=== PATIENT | female | born 1995 | race Caucasian/White ===

== ENCOUNTER → 2017-10-25 23:10 | Observation (INO) ==
[2017-10-25 20:57] VITALS: BP 193/99
[2017-10-25 21:04] LABS: Basophils % 0.2 %; Eosinophils % 0.2 %; Hematocrit 35.1 % (35.3-44.9); Hemoglobin 12.2 g/dL (11.5-15.4); Lymphocytes # 2.4 K/mcL (0.6-4.6); Mean Corpuscular HGB Conc 34.8 g/dL (31.6-35.5); Mean Corpuscular Hemoglobin 28.9 pg (28.0-33.3); Mean Corpuscular Volume 83.2 fL (83.0-100.0); Mean Platelet Volume 10.9 fL (9.4-12.4); Monocytes # 0.8 K/mcL (0.0-1.3); Monocytes % 6.5 %; Neutrophils # 8.8 K/mcL (1.6-8.9); Platelet Count 153 K/mcL (140-400); Red Blood Count 4.22 M/mcL (3.82-4.97); Red Cell Distribution Width 13.4 % (11.5-14.5); Segmented Neutrophils % 72.1 %
[2017-10-25 21:07] LABS: Amphetamine Screen,Urine Negative ng/mL (Cutoff=1000); Barbiturate Screen,Urine Negative ng/mL (Cutoff=200); Benzodiazepines Screen,Urine Negative ng/mL (Cutoff=200); Cannabinoid Screen,Urine Negative ng/mL (Cutoff = 50); Cocaine Screen,Urine Negative ng/mL (Cutoff= 300); Opiate Screen,Urine Negative ng/mL (Cutoff=300); Phencyclidine Screen,Urine Negative ng/mL (Cutoff=25)
[2017-10-25 21:26] LABS: Alanine Aminotransferase 12 Units/L (7-52); Aspartate Amino Transferase 26 Units/L (13-39); BUN/Creatinine Ratio 28 (6-26); Blood Urea Nitrogen 16 mg/dL (6-20); Uric Acid 7.2 mg/dL (2.3-7.6); eGFR For Non-African Americans > 60 (> 60)
[2017-10-25 21:44] LABS: Protein/Creatinine Ratio,Urine 8.49 mg/mg (0.00-0.20)
--- NOTE | 2017-10-25 22:21 | OB/GYN Progress Note ---
Date of Encounter: 10/25/17 Time of Encounter: 22:18 - Assessment and Plan (1) Pre-eclampsia Current Visit: Yes Status: Acute PIH labs highly elevated UPC at 8.49, remainder of labs WNL Blood pressures remained elevated and unable to obtain IV access within the first 20 minutes, patient given 10mg PO procardia x 1. Blood pressures decreased to 140's/80-90's after dose. Discussed with Dr Florentino, [place] [facility] Florentino [place] [facility] [place] Per consult with Dr Florentino, started IV magnesium. 4gm loading dose and then 2gm per hour maintenance. Patient transferred via squad with magnesium infusing and bedolla catheter in place. Qualifiers: Trimester: third trimester Qualified Code(s): O14.93 - Unspecified pre- eclampsia, third trimester (2) 32 weeks gestation of Current Visit: Yes Status: Acute Subjective - Subjective Principal diagnosis: HTN Interval history: Ms Ortega is a at 32weeks 6 days that presents to labor and delivery triage with c/o not feeling well and a blood pressure of 180's/160's at home. She denies headache, visual disturbances, epigastric pain, leaking of fluid, vaginal bleeding, and contractions. She states positive movement. She denies any problems with this , however, she does state [facility] because "they couldn't see it in the office". Antepartum ROS: new complaints, movement normal, no loss of fluid, no vaginal bleeding, no contractions Objective - Vital Signs Vital Signs: Vital Signs Temp Pulse Resp BP 10/25/17 20:56 97.0 F L 90 16 193/99 - Exam FHR: auscultation normal, category 1 FHR comments: No contractions; baseline 120 Auscultation: bilateral: normal Abdomen: Present: normal appearance, soft, gravid Uterus: Present: normal. Absent: firm, tenderness - Labs Labs: Abnormal lab results WBC 12.2 K/mcL (4.3-11.1) H 10/25/17 20:20 Hct 35.1 % (35.3-44.9) L 10/25/17 20:20 Creatinine 0.57 mg/dL (0.60-1.20) L 10/25/17 20:20 BUN/Creatinine Ratio 28 (6-26) H 10/25/17 20:20 Protein/Creatinin Ratio 8.49 mg/mg (0.00-0.20) H 10/25/17 20:20 Urine Total Protein 3072 mg/dL (1-14) H 10/25/17 20:20
[~2017-10-25 23:10] MED LIST: *HR* Labetalol 20 MG/4 ML SYRINGE IVP STA; Calcium Gluconate 1,000 MG/10 ML VIAL IVPB PRN; Magnesium Sulfate 20 gm/500mL 20 GM/500 ML IV.SOLN IVC SCH; NIFEdipine 10 MG CAPSULE PO ONE
[2017-10-25 23:30] LABS: Bilirubin,Urine Small (Negative); Blood,Urine Trace (Negative); Clarity,Urine Clear (Clear); Color,Urine Dark Yellow (Yellow); Glucose,Urine (UA) Normal (Normal); Ketones,Urine Trace mg/dL (Negative); Leukocyte Esterase,Urine Negative (Negative); Nitrite,Urine Negative (Negative); Protein,Urine >=1000 mg/dL (Neg-Trace); Specific Gravity,Urine > 1.030 (1.010-1.025); Urobilinogen,Urine Normal (Normal)
[2017-10-25 23:31] LABS: Squamous Epithelial Cell,Urine Many per lpf (None-Few); WBC,Urine 30-50 per hpf (0-3)
[2017-10-25 23:40] LABS: Bacteria,Urine Few per hpf (None-Few); Hyaline Casts,Urine Few per lpf (None-Few); Mucus,Urine Few (Few); RBC,Urine 0-3 per hpf (0-3)
== END ==
LOC: 1NENULAB
PROVIDERS: ADMIT Advanced Practice Midwife; ATTEND Advanced Practice Midwife

== ENCOUNTER 2021-08-24 16:58 | Observation (INO) ==
[2021-08-24] MEDS ORDERED: 0.9 % Sodium Chloride 1,000 ML IV ONE (18:07)
[2021-08-24] MEDS ORDERED: Piperacillin/Tazobactam 3.375 GM in 0.9 % Sodium Chloride Mini Bag 100 ML IVPB ONE (18:28)
[2021-08-24 18:42] LABS: Bilirubin,Urine Negative (Negative); Blood,Urine Negative (Negative); Clarity,Urine Clear (Clear); Color,Urine Colorless (Yellow); Glucose,Urine (UA) Normal (Normal); Ketones,Urine Trace mg/dL (Negative); Leukocyte Esterase,Urine Large (Negative); Mucus,Urine Few per lpf (None-Few); Nitrite,Urine Negative (Negative); Protein,Urine Negative (Neg-Trace); Specific Gravity,Urine > 1.030 (1.010-1.025); Squamous Epithelial Cell,Urine Few per hpf (None-Few); Urobilinogen,Urine Normal (Normal)
[2021-08-24 18:50] LABS: Basophils # 0.1 K/mcL (0.0-0.2); Basophils % 0.4 %; Eosinophils # 0.3 K/mcL (0.0-0.6); Eosinophils % 2.1 %; Hematocrit 40.9 % (35.3-44.9); Hemoglobin 13.5 g/dL (11.5-15.4); Immature Granulocytes % 0.3 % (0-4); Lymphocytes # 3.6 K/mcL (0.6-4.6); Lymphocytes % 29.6 %; Mean Corpuscular Hemoglobin 26.2 pg (28.0-33.3); Mean Corpuscular Volume 79.4 fL (83.0-100.0); Monocytes # 0.7 K/mcL (0.0-1.3); Monocytes % 5.6 %; Neutrophils # 7.5 K/mcL (1.6-8.9); Platelet Count 347 K/mcL (140-400); Red Blood Count 5.15 M/mcL (3.82-4.97); Red Cell Distribution Width 14.3 % (11.5-14.5)
[2021-08-24 18:57] LABS: INR 1.2; Prothrombin Time 12.9 Seconds (9.4-12.1)
[2021-08-24 19:00] LABS: Activated Partial Thrombo Time 37.4 Seconds (26.0-36.0)
[2021-08-24] MEDS ORDERED: Naloxone 0.4 MG/ML INJ IVP PRN ×2 (19:04→23:17)
[2021-08-24] MEDS ORDERED: Ibuprofen 400 MG TABLET PO PRN ×2 (19:04→23:17)
[2021-08-24] MEDS ORDERED: Ketorolac 30 MG/ML VIAL IM PRN ×2 (19:04→23:17)
[2021-08-24] MEDS ORDERED: Acetaminophen 325 MG TABLET PO PRN ×2 (19:04→23:17)
[2021-08-24] MEDS ORDERED: Ondansetron 4 MG/2 ML VIAL IVP PRN ×2 (19:04→23:17)
[2021-08-24] MEDS ORDERED: *HR* OxyCODONE Immed Rel 5 MG TABLET PO PRN ×3 (19:07→23:17)
[2021-08-24 19:10] LABS: Alanine Aminotransferase 68 Units/L (7-52); Albumin 4.6 g/dL (3.5-5.7); Albumin/Globulin Ratio 1.3 (1.1-2.2); Alkaline Phosphatase 94 Units/L (34-104); Aspartate Amino Transferase 43 Units/L (13-39); BUN/Creatinine Ratio 16 (6-26); Bilirubin,Direct 0.1 mg/dL (0.0-0.2); Bilirubin,Indirect 0.5 mg/dL (0.0-1.0); Bilirubin,Total 0.6 mg/dL (0.3-1.0); Blood Urea Nitrogen 9 mg/dL (6-20); Calcium 9.6 mg/dL (8.6-10.3); Carbon Dioxide 24 mEq/L (23-29); Chloride 103 mEq/L (98-107); Globulin 3.6 g/dL (2.4-3.5); Glucose 88 mg/dL (70-105); Lipase 18 Units/L (11-82); Osmolality,Calculated 282 (280-300); Potassium 3.9 mEq/L (3.5-5.1); Sodium 137 mEq/L (136-145); Total Protein 8.2 g/dL (6.4-8.9); eGFR For African Americans > 60 (> 60); eGFR For Non-African Americans > 60 (> 60)
[2021-08-24] MEDS ORDERED: D5% in 0.45% NACL 1,000 ML IVC SCH (19:15)
[2021-08-24] MEDS ORDERED: Famotidine 20 MG/2 ML VIAL IVP ONE (19:50)
[2021-08-24] MEDS ORDERED: Acetaminophen IV 1,000 MG/100 ML BAG IVPB ONE ×2 (19:50→19:53)
[2021-08-24] MEDS ORDERED: Famotidine 20 MG/2 ML VIAL ONE (19:53)
[2021-08-24] MEDS ORDERED: *HR* Midazolam HCl 2 MG/2 ML VIAL ONE (20:19)
[2021-08-24] MEDS ORDERED: *HR* Propofol 200 MG/20 ML VIAL IVP ONE (20:19)
[2021-08-24] MEDS ORDERED: *HR* HYDROMORPHONE 2 MG/ML VIAL ONE (20:19)
[2021-08-24] MEDS ORDERED: *HR* FentaNYL (PF) 100 MCG/2 ML VIAL ONE (20:19)
[2021-08-24] MEDS ORDERED: *HR* Rocuronium Bromide 50 MG/5 ML VIAL ONE ×2 (20:20→20:23)
[2021-08-24] MEDS ORDERED: Ondansetron 4 MG/2 ML VIAL ONE (20:23)
[2021-08-24] MEDS ORDERED: Lidocaine HCL 4 ML Topical Solution (Laryng-O-Jet Kit Sterile Pak) TP ONE (20:23)
[2021-08-24] MEDS ORDERED: Lidocaine -MPF 2% 2 ML VIAL ONE (20:23)
[2021-08-24] MEDS ORDERED: Bupivacaine-MPF 0.25% 10 ML VIAL ONE (20:37)
[2021-08-24] MEDS ORDERED: Lidocaine/EPI 1:100k 1% 50 ML VIAL ONE (20:37)
[2021-08-24] MEDS ORDERED: Ketamine HCL *QUVA* 50mg (1mL) SYRINGE ONE (21:21)
[2021-08-24] MEDS ORDERED: Ketorolac 30 MG/ML VIAL ONE (22:10)
[2021-08-24] MEDS: *HR* HYDROmorphone PF 0.5 MG/0.5 ML SYRINGE IVP PRN ×2 (22:33→22:45)
[2021-08-24] MEDS: D5% in 0.45% NACL 1,000 ML IVC SCH (23:48)
[2021-08-25] MEDS: *HR* OxyCODONE Immed Rel 5 MG TABLET PO PRN ×2 (01:23→06:37)
[2021-08-25 02:58] VITALS: TEMP 97.8
[2021-08-25 06:54] VITALS: BP 136/79; PULSE 89; O2SAT 94
[2021-08-25] MEDS: D5% in 0.45% NACL 1,000 ML IVC SCH (08:54)
== END 2021-08-25 12:32 | disposition home or self-care (01) ==
LOC: EMEROOARM 16:58 → 3ANU 16:58 → 3BNU 18:51
PROVIDERS: ADMIT Surgery; ATTEND Surgery